=== PATIENT | male | born 1985 | race Caucasian/White ===

== ENCOUNTER → 2016-12-29 10:55 | Emergency (ER) | payer SELFPAY | END | disposition left against medical advice (07) | LOC: CED 10:55 | DX: Z53.21 Procedure and treatment not carried out due to patient leaving prior to being seen by health care provider (principal) ==

== ENCOUNTER 2016-12-29 22:15 | Emergency (ER) | payer SELFPAY ==
--- NOTE | ~2016-12-29 | CR282 ---
[facility] A Service of [facility] [place] RADIOLOGY TEXT RESULTS PATIENT: RHIANNON AARON LOCATION: [place] : 81 UNIT #: [id number] AGE: [address]: DONOVAN GOMEZ APRN SEX: M ORDER DR: [id number] [place] [id number] [facility]. [place], [place] [address] [id number] E MR#: [id number] #: [id number] NAME: RHIANNON AARON : 1985 SEX: M STUDY DATE/TIME: 12/29/2016 21:52 UNIT: [facility] ROOM: STUDY DESCRIPTION: CR Wrist Min 3 View Rt Attending Physician: Donovan Gomez Aprn Ordering Physician: Donovan Gomez Aprn Primary Care Physician: No Primary Care Physician MEDICAL IMAGING REPORT This report is preliminary unless electronic signature is present EXAM Right wrist, 3 views. DATE OF EXAM 12/29/2016 COMPARISON None. INDICATIONS 31-year-old male with right wrist pain after falling today. FINDINGS There is a healed fracture of the distal fifth metacarpal. There are radiopacities near the base of the fifth proximal phalanx measuring up to 2 mm concerning for foreign bodies of uncertain acuity. Bones are anatomically aligned. No acute fracture. IMPRESSION No acute fracture or dislocation. Radiopaque densities seen near the base of the fifth proximal phalanx measuring up to 2 mm. These are concerning for retained foreign bodies of uncertain acuity. Clinical correlation with any possible laceration at this site is recommended to exclude an acute retained foreign body. Dictated by... Rah Stephen M.D. THIS IS AN ELECTRONICALLY VERIFIED REPORT Rah Stephen M.D. at 01/02/2017 10:14 PM SHERIN/becki [facility] A Service [facility] RADIOLOGY TEXT RESULTS PATIENT: RHIANNON AARON LOCATION: [facility] : 81 UNIT #: [id number] AGE: [address]: DONOVAN GOMEZ APRN SEX: M ORDER DR: TD: 12/29/2016 23:44 JOB #: [id number] MEDICAL IMAGING REPORT Page 1 of 1 COPY
--- NOTE | ~2016-12-29 | CR142 ---
[facility] A Service of [facility] RADIOLOGY TEXT RESULTS PATIENT: RHIANNON AARON LOCATION: [facility] : 81 UNIT #: [id number] AGE: [address]: DONOVAN GOMEZ APRN SEX: M ORDER DR: [id number] [facility] [address] [place], [place] [address] [id number] E MR#: [id number] Acc #: [id number] NAME: RHIANNON AARON : 1985 SEX: M STUDY DATE/TIME: 12/29/2016 21:51 UNIT: [place] ROOM: STUDY DESCRIPTION: CR Hand Min 3 Views Rt Attending Physician: Donovan Gomez Aprn Ordering Physician: Donovan Gomez Aprn Primary Care Physician: Primary Care Physician No MEDICAL IMAGING REPORT This report is preliminary unless electronic signature is present EXAM Right hand, 3 views, 12/29/2016 COMPARISON 3 views of the right wrist on the same date. INDICATION 31-year-old male right fifth finger pain after falling today. FINDINGS Bones are anatomically aligned. Seen on radiographs of the hand and wrist there is 1 and possibly 2 other punctate radiopacities seen near the base of the proximal fifth phalanx. This appeared to localize in the medial soft tissues. Largest of these measures up to approximately 1-2 mm. There is a healed fracture of the distal fifth metacarpal shaft. IMPRESSION 1. No acute fracture or dislocation of the right hand. There is a 1 and possibly 2 other smaller radiopacity is near the base of the proximal fifth phalanx favored to localize in the soft tissues. These measure up to 2 mm and are concerning for retained foreign bodies of uncertain acuity. Clinical correlation is recommended to exclude acute retained foreign body. 2. Healed fracture of the fifth metacarpal. No evidence of acute fracture or dislocation. Dictated by... Rah Stephen M.D. THIS IS AN ELECTRONICALLY VERIFIED REPORT Rah Stephen M.D. at 01/02/2017 10:13 PM [facility] A Service of [facility] RADIOLOGY TEXT RESULTS PATIENT: RHIANNON AARON LOCATION: [facility] : 81 UNIT #: [id number] AGE: [address]: DONOVAN GOMEZ APRN SEX: M ORDER DR: SHERIN/duran TD: 12/29/2016 23:44 JOB #: [id number] MEDICAL IMAGING REPORT Page 1 of 1 COPY
== END 2016-12-29 22:54 | disposition home or self-care (01) ==
LOC: CFTX 22:15
DX: S60.211A Contusion of right wrist, initial encounter (principal); F17.210 Nicotine dependence, cigarettes, uncomplicated; Z88.0 Allergy status to penicillin; Z88.1 Allergy status to other antibiotic agents; W06.XXXA Fall from bed, initial encounter; Y92.89 Other specified places as the place of occurrence of the external cause
CPT/HCPCS: 29125; 73110; 73130; 99283

== ENCOUNTER → 2017-02-15 | Outpatient (CLI) | payer OTHER ==
[2017-02-15 15:24] LABS: BASOPHIL# 0.1 X10e3 (0-0.3); BASOPHIL% 0.6 % (0-2.5); EOSINOPHIL# 0.6 X10e3 (0-0.7); EOSINOPHIL% 4.7 % (0.0-7.0); HEMATOCRIT 46.3 % (38.0-50.0); HEMOGLOBIN 15.2 gm/dL (13.0-16.0); LYMPHOCYTE# 2.3 X10e3 (1.0-3.5); LYMPHOCYTE% 17.8 % (17.0-45.0); MEAN CELL VOLUME 86.5 FL (83-96); MEAN CORPUSCULAR HEMOGLOBIN 28.4 PG (28-34); MEAN CORPUSCULAR HGB CONC 32.8 g/dL (30-36); MEAN PLATELET VOLUME 9.3 FL (6.5-11.5); MONOCYTE# 0.9 X10e3 (0-1.0); MONOCYTE% 7.2 % (3.0-12.0); NEUTROPHIL# 8.9 X10e3 (1.5-7.1); NEUTROPHIL% 69.7 % (40-75); PLATELET COUNT 239 X10e3 (140-420); RED BLOOD COUNT 5.36 X10e (3.90-5.60); RED CELL DISTRIBUTION WIDTH 13.6 % (11.0-15.5); WHITE BLOOD COUNT 12.8 X10e3 (4.0-10.5)
[2017-02-15 15:42] LABS: DIFF IND NO
[2017-02-15 15:56] LABS: ALBUMIN SERUM 4.4 g/dL (3.5-5.0); ALKALINE PHOSPHATASE 72 U/L (32-92); ALT (SGPT) 21 U/L (10-40); AST (SGOT) 19 U/L (10-42); BILIRUBIN,TOTAL 0.4 mg/dL (0.2-2.0); BLOOD UREA NITROGEN 12 mg/dL (9-23); CALCIUM SERUM 9.4 mg/dL (8.4-10.2); CARBON DIOXIDE 26 mmol/L (22-31); CHLORIDE 102 mmol/L (100-111); CHOLESTEROL 218 mg/dL (0-200); CREATININE SERUM 0.8 mg/dL (0.6-1.4); GLOM FILT RATE Estimated 117.4 mL/min (>60); GLUCOSE FASTING 91 mg/dL (70-110); HDL CHOLESTEROL 36 mg/dL (29-75); POTASSIUM 4.1 mmol/L (3.5-5.1); PROTEIN TOTAL SERUM 7.5 g/dL (6.0-8.3); SODIUM 136 mmol/L (135-145)
[2017-02-15 15:57] LABS: TRIGLYCERIDES 461 mg/dL (10-160)
[2017-02-15 16:14] LABS: FOLATE (FOLIC ACID) 19.5 ng/mL (>5.8)
== END | disposition home or self-care (01) ==
LOC: CLAB 14:43
PROVIDERS: Nurse Practitioner
DX: E78.5 Hyperlipidemia, unspecified (principal); I10 Essential (primary) hypertension; M05.749 Rheumatoid arthritis with rheumatoid factor of unspecified hand without organ or systems involvement; M05.759 Rheumatoid arthritis with rheumatoid factor of unspecified hip without organ or systems involvement
CPT/HCPCS: 36415; 80053; 80061; 82607; 82746; 83036; 84443; 85025